=== PATIENT | male | born 1930 | race Caucasian/White ===

== ENCOUNTER 2017-04-06 19:16 | Emergency (ER) | payer MEDICARE, BC ==
[2017-04-06 19:35] VITALS: BP 145/61
--- NOTE | 2017-04-06 19:51 | EDM.PDOC ---
ED HPI GENERAL MEDICAL PROBLEM - General Chief Complaint: Lower Extremity Injury/Pain Stated Complaint: LEGS Time Seen by Provider: 04/06/17 19:24 Source of Information: Reports: Patient, Family History Limitations: Reports: No Limitations - History of Present Illness INITIAL COMMENTS - FREE TEXT/NARRATIVE: Patient here with complaints of right knee pain that started a few days ago and he know has lower extremity swelling of that same leg. 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 He states his pain is specifically to the medial aspect of his knee/tibial plateau area. No calf pain, warmth, or redness. 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 He has no other complaints at this time. No SOB, CP, urinating frequently at night, regular BM's. No abdominal pain, fever, or chills. Onset: Gradual Onset Date: 04/03/17 Location: Reports: Lower Extremity, Right Quality: Reports: Sharp Severity: Moderate Improves with: Reports: Cold Therapy, Rest Worsens with: Reports: Movement Associated Symptoms: Reports: No Other Symptoms posterior right knee Pain Score (Numeric/FACES): 8 - Related Data Allergies Allergy/AdvReac Type Severity Reaction Status Date / Time BUBBA Inhibitors Allergy Other Verified 04/06/17 19:33 adhesive tape Allergy Other Verified 04/06/17 19:33 minocycline Allergy Other Verified 04/06/17 19:33 contrast dye Allergy Hives Uncoded 04/06/17 19:33 Home Meds: Home Meds Cholecalciferol (Vitamin D3) [Vitamin D3] 1,000 units PO DAILY 03/02/16 [History ] Clobetasol Propionate [Temovate] 15 gm TP BID PRN 03/02/16 [History] Cyclobenzaprine [Flexeril] 5 mg PO TID PRN 03/02/16 [History] Hydrochlorothiazide 0.5 tab PO DAILY 03/02/16 [History] Hydrocodone/Acetaminophen [[place] 5-325] 1 - 2 tab PO ASDIRECTED PRN 03/02/16 [ History] Losartan [Cozaar] 50 mg PO DAILY 03/02/16 [History] Multivitamin [Multivitamins] 1 cap PO DAILY 03/02/16 [History] Nitroglycerin [Nitrostat] 0.4 mg SL ASDIRECTED PRN 03/02/16 [History] Omeprazole 20 mg PO BID 03/02/16 [History] atorvaSTATin Calcium [Atorvastatin Calcium] 80 mg PO DAILY 03/02/16 [History] Aspirin [Halfprin] 81 mg PO BRK 04/06/17 [History] Cyanocobalamin (Vitamin B-12) [Vitamin B-12] 1,000 mcg PO DAILY 04/06/17 [ History] Past Medical History Cardiovascular History: Reports: CAD, High Cholesterol, Hypertension, [place], Other (See Below) Other Cardiovascular History: carotid stenosis Gastrointestinal History: Reports: GERD, Other (See Below) Other Gastrointestinal History: inguinal hernia Genitourinary History: Reports: Other (See Below) Other Genitourinary History: 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 right side Dermatological Surgical History: Reports: Skin Biopsy Social & Family History - Tobacco Use Smoking Status *Q: Never Smoker Second Hand Smoke Exposure: No - Alcohol Use Days Per Week of Alcohol Use: 7 Number of Drinks Per Day: 3 Total Drinks Per Week: 21 - Recreational Drug Use Recreational Drug Use: No Review of Systems - Review of Systems Review Of Systems: See Below Constitutional: Reports: No Symptoms Eyes: Reports: No Symptoms Ears: Reports: No Symptoms Nose: Reports: No Symptoms Mouth/Throat: Reports: No Symptoms Respiratory: Reports: No Symptoms Cardiovascular: Reports: No Symptoms GI/Abdominal: Reports: No Symptoms Genitourinary: Reports: No Symptoms Musculoskeletal: Reports: Leg Pain, Joint Pain (right knee) Skin: Reports: No Symptoms Neurological: Reports: No Symptoms Psychiatric: Reports: No Symptoms ED EXAM, GENERAL - Physical Exam Exam: See Below Exam Limited By: No Limitations General Appearance: Alert, WD/WN, Mild Distress Eye Exam: Bilateral Eye: EOMI, PERRL Ears: Normal TMs Throat/Mouth: Normal Inspection, Normal Oropharynx Head: Atraumatic, Normocephalic Neck: Normal Inspection Respiratory/Chest: No Respiratory Distress, Lungs Clear, Normal Breath Sounds, No Accessory Muscle Use, Chest Non-Tender Cardiovascular: Normal Peripheral Pulses, Regular Rate, Rhythm, No Murmur Peripheral Pulses: 2+: Posterior Tibial (L), Posterior Tibial (R), Dorsalis Pedis (L), Dorsalis Pedis (R) GI/Abdominal: Normal Bowel Sounds, Soft, Non-Tender, No Organomegaly, No Distention Back Exam: Normal Inspection Extremities: Normal Range of Motion, Normal Capillary Refill, Pedal Edema (1-2+ pedal edema to right lower leg and right knee with joint effusion), Joint Swelling Neurological: Alert, Oriented, CN II-XII Intact, Normal Cognition, Normal Reflexes, No Motor/Sensory Deficits, Abnormal Gait (due to pain to right knee, slight limp) Psychiatric: Normal Affect, Normal Mood Skin Exam: Warm, Dry, Intact, Normal Color, No Rash, Ecchymosis (left thumb where injured while working, also has edema) Lymphatic: No Adenopathy Course - Vital Signs Last Recorded V/S: Last Vital Signs Temp 36.0 C 04/06/17 19:34 Pulse 67 04/06/17 19:34 Resp 16 04/06/17 19:34 BP 145/61 H 04/06/17 19:34 Pulse Ox 95 04/06/17 19:34 - Re-Assessments/Exams Free Text/Narrative Re-Assessment/Exam: 04/06/17 20:49 labwork and x-ray reviewed. No acute process within the knee. Vascular calcifications noted. D-dimer negative. uric acid also negative. Departure - Departure Time of Disposition: 20:54 Disposition: Home, Self-Care 01 Condition: Good Clinical Impression: Acute knee pain, Right leg swelling - Discharge Information Instructions: Knee Sprain, [id number], Knee Pain Forms: ED Department Discharge Additional Instructions: Your workup in the emergency room was negative for any acute causes for your knee pain. The work up for blood clot and gout were negative. You do not have acute fractures. You should follow up with your primary doctor for any additional knee symptoms. If your knee pain does not improve, you may need to have an MRI to rule out any soft tissue injury in the ligament, tendon, muscle, or cartilage. In the meantime, rest, ice, compress and elevate your right leg. 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 Take ibuprofen, motrin, or aleve. You can also add in tylenol as needed. Please call us with any questions or concerns. - Problem List & Annotations (1) Acute knee pain SNOMED Code(s): 08319046 Code(s): M25.569 - PAIN IN UNSPECIFIED KNEE Status: Acute Priority: Low Current Visit: Yes Qualifiers: Laterality: right Qualified Code(s): M25.561 - Pain in right knee (2) Right leg swelling SNOMED Code(s): 656860660 Code(s): M79.89 - OTHER SPECIFIED SOFT TISSUE DISORDERS Status: Acute Priority: Low Current Visit: Yes - Problem List Review Problem List Initiated/Reviewed/Updated: Yes - Assessment/Plan Assessment:: Right knee pain/muscle strain Plan: Your workup in the emergency room was negative for any acute causes for your knee pain. The work up for blood clot and gout were negative. You do not have acute fractures. You should follow up with your primary doctor for any additional knee symptoms. If your knee pain does not improve, you may need to have an MRI to rule out any soft tissue injury in the ligament, tendon, muscle, or cartilage. In the meantime, rest, ice, compress and elevate your right leg. 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 Take ibuprofen, motrin, or aleve. You can also add in tylenol as needed. Please call us with any questions or concerns.
[2017-04-06 20:33] LABS: CHLORIDE,CL 102 mmol/L (98-107); SODIUM,NA 136 mmol/L (136-145)
== END 2017-04-06 21:00 | disposition home or self-care (01) ==
LOC: VM.ED 19:16
DX: M25.561 Pain in right knee (principal); R22.41 Localized swelling, mass and lump, right lower limb; E78.00 Pure hypercholesterolemia, unspecified; I10 Essential (primary) hypertension; I25.2 Old myocardial infarction; K21.9 Gastro-esophageal reflux disease without esophagitis; I25.810 Atherosclerosis of coronary artery bypass graft(s) without angina pectoris; Z95.1 Presence of aortocoronary bypass graft; Z88.1 Allergy status to other antibiotic agents; Z91.041 Radiographic dye allergy status; Z79.899 Other long term (current) drug therapy; Z79.82 Long term (current) use of aspirin
CPT/HCPCS: 36415; 73562-RT; 80053; 84550; 85025; 85379; 85610; 99283; 99283-GF

== ENCOUNTER 2017-11-29 06:14 | Observation (INO) | payer MEDICARE, BC ==
[2017-11-29] MEDS ORDERED: Sodium Chloride 0.9% 10 ML Syringe FLUSH PRN (06:30)
--- NOTE | 2017-11-29 06:32 | EDM.PDOC ---
<Ernie Bardales - Last Filed: 11/29/17 07:10> ED HPI GENERAL MEDICAL PROBLEM - General Chief Complaint: Gastrointestinal Problem Stated Complaint: NAUSEA Time Seen by Provider: 11/29/17 06:20 Source of Information: Reports: Patient, EMS Notes Reviewed, RN, RN Notes Reviewed History Limitations: Reports: No Limitations - History of Present Illness INITIAL COMMENTS - FREE TEXT/NARRATIVE: Patient is brought to the ED at [facility] via EMS because he was feeling nauseated. Patient was seen in the clinic at [facility] a couple of days ago and placed on Augmentin for cellulitis. Patient states he started taking the medication yesterday and began to feel nauseated. EMS crew stay upon their arrival, patient stated he felt some chest discomfort. 12 Lead was completed. Patient was given Zofran enroute. On arrival to the ED, patient states he was feeling pretty good. No complains. Denied any chest pain or SOB. Nausea has resolved. No focal neurological deficits. Onset: Today Onset Date: 11/29/17 - Related Data Allergies Allergy/AdvReac Type Severity Reaction Status Date / Time BUBBA Inhibitors Allergy Other Verified 11/29/17 06:19 adhesive tape Allergy Other Verified 11/29/17 06:19 minocycline Allergy Other Verified 11/29/17 06:19 contrast dye Allergy Hives Uncoded 11/29/17 06:19 Home Meds: Home Meds Cholecalciferol (Vitamin D3) [Vitamin D3] 1,000 units PO DAILY 03/02/16 [History ] Clobetasol Propionate [Temovate] 15 gm TP BID PRN 03/02/16 [History] Hydrochlorothiazide 12.5 mg PO DAILY 03/02/16 [History] Hydrocodone/Acetaminophen [[place] 5-325] 1 - 2 tab PO Q6H PRN 03/02/16 [History] Losartan [Cozaar] 50 mg PO DAILY 03/02/16 [History] Multivitamin [Multivitamins] 1 tab PO DAILY 03/02/16 [History] Nitroglycerin [Nitrostat] 0.4 mg SL ASDIRECTED PRN 03/02/16 [History] Omeprazole 20 mg PO BID 03/02/16 [History] atorvaSTATin Calcium [Atorvastatin Calcium] 80 mg PO BEDTIME 03/02/16 [History] Aspirin [Halfprin] 81 mg PO BRK 04/06/17 [History] Amoxicillin/Potassium Clav [Augmentin 500-125 Tablet] 1 each PO BID 11/29/17 [ History] LORazepam [Ativan] 0.5 - 1 mg PO DAILY PRN 11/29/17 [History] Vitamin B Complex [B Complex] 1,000 mg PO DAILY 11/29/17 [History] Past Medical History Cardiovascular History: Reports: CAD, High Cholesterol, Hypertension, [place], Other (See Below) Other Cardiovascular History: carotid stenosis Gastrointestinal History: Reports: GERD, Other (See Below) Other Gastrointestinal History: inguinal hernia Genitourinary History: Reports: Other (See Below) Other Genitourinary History: 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 right side Dermatological Surgical History: Reports: Skin Biopsy Social & Family History - Tobacco Use Smoking Status *Q: Never Smoker Second Hand Smoke Exposure: No - Alcohol Use Days Per Week of Alcohol Use: 7 Number of Drinks Per Day: 3 Total Drinks Per Week: 21 - Recreational Drug Use Recreational Drug Use: No ED ROS GENERAL - Review of Systems Review Of Systems: See Below Constitutional: Denies: Fever, Chills, Weakness Respiratory: Denies: Shortness of Breath, Cough Cardiovascular: Denies: Chest Pain, Palpitations GI/Abdominal: Reports: Nausea. Denies: Abdominal Pain, Vomiting Skin: Reports: No Symptoms Neurological: Reports: No Symptoms. Denies: Dizziness, Headache ED EXAM, GI/ABD - Physical Exam Exam: See Below Exam Limited By: No Limitations General Appearance: Alert, No Apparent Distress Respiratory/Chest: No Respiratory Distress, Lungs Clear, Normal Breath Sounds Cardiovascular: Normal Peripheral Pulses, Regular Rate, Rhythm GI/Abdominal Exam: Soft, Non-Tender, Abnormal Bowel Sounds (Hypoactive) Neurological: Alert, Oriented Skin Exam: Warm, Dry, Intact Course - Vital Signs Last Recorded V/S: Last Vital Signs Temp 36.3 C 11/29/17 08:11 Pulse 58 L 11/29/17 08:11 Resp 18 04/25/18 08:11 BP 159/72 H 11/29/17 08:11 Pulse Ox 100 11/29/17 08:11 - Orders/Labs/Meds Orders: Active Orders 24 hr Category Date Time Status Sodium Chloride 0.9% [Saline Flush] Med 11/29/17 06:30 Active 10 ml FLUSH ASDIRECTED PRN Peripheral IV Insertion Adult [OM.PC] Routine Oth 11/29/17 06:30 Ordered Medication Orders Hydrocodone Bitart/Acetaminophen (Take Home: Acetam/Hydrocodon 325-5 Mg, 5 Pack ) packet PO Q6H PRN PRN Reason: Pain Amoxicillin/Clavulanate Potassium (Augmentin 500 Mg\\125 Mg) tab PO BID SANAZ Aspirin (Halfprin) 81 mg PO BRK SANAZ Cholecalciferol (Vitamin D3) 1,000 units PO DAILY SANAZ Enoxaparin Sodium (Lovenox) 40 mg SUBCUT DAILY SANAZ Hydrochlorothiazide (Hydrochlorothiazide) 12.5 mg PO DAILY SANAZ Lorazepam (Ativan) 0.5 - 1 mg PO DAILY PRN PRN Reason: Anxiety Losartan Potassium (Cozaar) 50 mg PO DAILY SANAZ Non-Formulary Medication (Atorvastatin Calcium [Atorvastatin Calcium]) 80 mg PO BEDTIME SANAZ Non-Formulary Medication (Multivitamin [Multivitamins]) 1 tab PO DAILY SANAZ Non-Formulary Medication (Omeprazole [Omeprazole]) 20 mg PO BID SANAZ Non-Formulary Medication (Vitamin B Complex [B Complex]) 1,000 mg PO DAILY SANAZ Sodium Chloride (Saline Flush) 10 ml FLUSH ASDIRECTED PRN PRN Reason: Keep Vein Open Last Admin: 11/29/17 07:21 Dose: 10 ml Labs: Laboratory Tests 11/29/17 11/29/17 Range/Units 06:40 06:40 WBC 8.3 (4.0-10.0) x10^3/uL RBC 3.84 L (4.5-6.0) x10^6/uL Hgb 12.6 L (14.0-18.0) g/dL Hct 36.7 L (40.0-52.0) % MCV 95.6 H (78.0-93.0) fL MCH 32.8 H (26.0-32.0) pg MCHC 34.3 (32.0-36.0) g/dL RDW Coeff of Latonya 12.4 (10.0-15.0) % Plt Count 187 (130-400) x10^3/uL Neut % (Auto) 74.9 (50.0-80.0) % Lymph % (Auto) 10.8 L (25.0-50.0) % [place] % (Auto) 12.0 H (2.0-11.0) % Eos % (Auto) 2.2 (0.0-4.0) % Baso % (Auto) 0.1 L (0.2-1.2) % Sodium 136 (136-145) mmol/L Potassium 4.0 (3.5-5.1) mmol/L Chloride 101 (98-107) mmol/L Carbon Dioxide 28 (21-32) mmol/L Anion Gap 11.0 (10-20) mmol/L BUN 17 (7-18) mg/dL Creatinine 1.1 (0.70-1.30) mg/dL Est Cr Clr Drug Dosing TNP Estimated GFR (MDRD) > 60 Glucose 116 H (74-106) mg/dL Calcium 9.0 (8.5-10.1) mg/dL Creatine Kinase 53 (39-308) U/L Troponin I < 0.017 (<=0.056) ng/mL Meds: Medications Generic Name Dose Route Start Last Admin Trade Name Freq PRN Reason Stop Dose Admin Hydrocodone Bitart/Acetaminophen packet 11/29/17 09:21 Take Home: Acetam/Hydrocodon 325-5 Mg, 5 Pack PO Q6H PRN Pain Amoxicillin/Clavulanate Potassium tab 11/29/17 20:00 Augmentin 500 Mg\\125 Mg PO BID SANAZ Aspirin 81 mg 11/30/17 08:00 Halfprin PO BRK [facility] Cholecalciferol 1,000 units 11/30/17 08:00 Vitamin D3 PO DAILY [facility] Enoxaparin Sodium 40 mg 11/29/17 09:30 Lovenox SUBCUT DAILY [facility] Hydrochlorothiazide 12.5 mg 11/30/17 08:00 Hydrochlorothiazide PO DAILY [facility] Lorazepam 0.5 - 1 mg 11/29/17 09:21 Ativan PO DAILY PRN Anxiety Losartan Potassium 50 mg 11/29/17 09:30 Cozaar PO DAILY SANAZ Non-Formulary Medication 80 mg 11/29/17 20:00 Atorvastatin Calcium [Atorvastatin Calcium] PO BEDTIME SANAZ Non-Formulary Medication 1 tab 11/29/17 09:30 Multivitamin [Multivitamins] PO DAILY SANAZ Non-Formulary Medication 20 mg 11/29/17 09:30 Omeprazole [Omeprazole] PO BID SANAZ Non-Formulary Medication 1,000 mg 11/29/17 09:30 Vitamin B Complex [B Complex] PO DAILY SANAZ Sodium Chloride 10 ml 11/29/17 06:30 11/29/17 07:21 Saline Flush FLUSH 10 ml ASDIRECTED PRN Administration Keep Vein Open Discontinued Medications Generic Name Dose Route Start Last Admin Trade Name Freq PRN Reason Stop Dose Admin Metoclopramide HCl 5 mg 11/29/17 07:14 11/29/17 07:21 Reglan IVPUSH 11/29/17 07:15 5 mg ONETIME ONE Administration Departure - Departure Disposition: Home, Self-Care 01 Clinical Impression: Bradycardia - Discharge Information - Problem List Review Problem List Initiated/Reviewed/Updated: Yes <Toy Lopez - Last Filed: 11/29/17 09:28> ED EXAM, GI/ABD - Physical Exam Ears: Normal External Exam, Normal Canal, Hearing Grossly Normal, Normal TMs Nose: Normal Inspection, Normal Mucosa, No Blood Throat/Mouth: Normal Inspection, Normal Lips, Normal Teeth, Normal Gums, Normal Oropharynx, Normal Voice, No Airway Compromise Head: Atraumatic, Normocephalic Neck: Normal Inspection, Supple, Non-Tender, Full Range of Motion (Male) Exam: Deferred Rectal (Males) Exam: Deferred Back Exam: Normal Inspection, Full Range of Motion, NT Extremities: Normal Inspection, Normal Range of Motion, Non-Tender, Normal Capillary Refill, No Pedal Edema Lymphatic: No Adenopathy EKG INTERPRETATION EKG Date: 11/29/17 Rhythm: NSR Departure - Departure Time of Disposition: 09:27
[2017-11-29 07:07] LABS: CHLORIDE,CL 101 mmol/L (98-107); SODIUM,NA 136 mmol/L (136-145)
[2017-11-29] MEDS ORDERED: Metoclopramide 10 MG/2 ML SDV IVPUSH ONE (07:14)
[2017-11-29] MEDS ORDERED: LORazepam 0.5 MG Tab PO PRN (09:21)
[2017-11-29] MEDS ORDERED: Acetaminophen/HYDROcodone 325-5 MG Tab PO PRN (09:21)
[2017-11-29] MEDS: Enoxaparin 40 MG/0.4 ML Syringe SUBCUT SCH (10:28)
[2017-11-29] MEDS: Multivitamin, Stress Formula with Zinc Tab PO SCH ×2 (10:29→10:55)
[2017-11-29] MEDS: Vitamin B Complex Tab.ER PO SCH ×2 (10:29→10:55)
[2017-11-29] MEDS: Hydrochlorothiazide 25 MG Tab PO SCH (10:29)
[2017-11-29] MEDS: Omeprazole 20 MG Cap.CR PO SCH ×2 (10:29→20:55)
[2017-11-29] MEDS: Losartan 50 MG Tab PO SCH (10:29)
[2017-11-29] MEDS ORDERED: Multivitamin, Stress Formula with Zinc Tab PO SCH (20:00)
[2017-11-29] MEDS ORDERED: Cholecalciferol (Vitamin D3) 1,000 Unit Tab PO SCH (20:00)
[2017-11-29] MEDS ORDERED: atorvaSTATin 40 MG Tab PO SCH (20:00)
[2017-11-29] MEDS ORDERED: Vitamin B Complex Tab.ER PO SCH (20:00)
[2017-11-29] MEDS: Amoxicillin/Clavulanate K 500-125 MG Tab PO SCH (20:54)
[2017-11-30] MEDS: Hydrochlorothiazide 25 MG Tab PO SCH (07:41)
[2017-11-30] MEDS: Amoxicillin/Clavulanate K 500-125 MG Tab PO SCH (07:41)
[2017-11-30] MEDS: Omeprazole 20 MG Cap.CR PO SCH (07:41)
[2017-11-30] MEDS: Enoxaparin 40 MG/0.4 ML Syringe SUBCUT SCH (07:41)
[2017-11-30] MEDS: Losartan 50 MG Tab PO SCH (07:41)
[2017-11-30] MEDS ORDERED: Aspirin 81 MG Tab.EC PO SCH (08:00)
[2017-11-30 10:42] VITALS: BP 105/58
== END 2017-11-30 13:00 | disposition home or self-care (01) ==
LOC: VM.ED 06:14 → VM.MS 07:45
PROVIDERS: ADMIT Physician Assistant; ATTEND Physician Assistant
DX: R00.1 Bradycardia, unspecified (principal); I25.10 Atherosclerotic heart disease of native coronary artery without angina pectoris; I10 Essential (primary) hypertension; E78.00 Pure hypercholesterolemia, unspecified; K21.9 Gastro-esophageal reflux disease without esophagitis; Z88.1 Allergy status to other antibiotic agents; Z91.041 Radiographic dye allergy status; Z91.09 Other allergy status, other than to drugs and biological substances; Z79.82 Long term (current) use of aspirin; Z79.2 Long term (current) use of antibiotics; Z79.899 Other long term (current) drug therapy
CPT/HCPCS: 36415; 80048; 82550; 84484; 85025; 85027; 93005; 96372; 96374; 99283-GF; 99284; A9270-GY; G0378; J1650; J2765; J7050

== ENCOUNTER 2019-04-07 18:59 | Emergency (ER) | payer MEDICARE, BC ==
[2019-04-07 19:30] VITALS: BP 166/73
--- NOTE | 2019-04-07 21:43 | EDM.PDOC ---
ED HPI GENERAL MEDICAL PROBLEM - General Chief Complaint: Lower Extremity Injury/Pain Stated Complaint: FELL Time Seen by Provider: 04/07/19 19:10 Source of Information: Reports: Patient History Limitations: Reports: No Limitations - History of Present Illness INITIAL COMMENTS - FREE TEXT/NARRATIVE: Pt. presents to ER with complaints of R thigh pain. Pt. states that he fell on Monday and is concerned that his thigh is uncomfortable and swollen. States that the pain is isolated to the mid R femur area. No hip or knee pain. Denies striking head. No numbness/tingling in the extremity. He is able to bear weight and walk. Pain is worse with palpation of the area. Denies any chest pain or shortness of breath. He denies any lightheadedness, weakness or other prodrome prior to the fall. Onset Date: 04/07/19 Location: Reports: Lower Extremity, Right Quality: Reports: Throbbing Severity: Moderate Right Thigh Pain Score (Numeric/FACES): 6 - Related Data Allergies Allergy/AdvReac Type Severity Reaction Status Date / Time BUBBA Inhibitors Allergy Other Verified 04/07/19 19:14 adhesive tape Allergy Other Verified 04/07/19 19:14 minocycline Allergy Other Verified 04/07/19 19:14 contrast dye Allergy Hives Uncoded 04/07/19 19:14 Home Meds: Home Meds Cholecalciferol (Vitamin D3) [Vitamin D3] 1,000 units PO DAILY 03/02/16 [History ] Losartan [Cozaar] 50 mg PO DAILY 03/02/16 [History] Multivitamin [Multivitamins] 1 tab PO DAILY 03/02/16 [History] Omeprazole 20 mg PO BID 03/02/16 [History] atorvaSTATin Calcium [Atorvastatin Calcium] 80 mg PO BEDTIME 03/02/16 [History] hydroCHLOROthiazide [Hydrochlorothiazide] 12.5 mg PO DAILY 03/02/16 [History] Aspirin [Halfprin] 81 mg PO BRK 04/06/17 [History] Vitamin B Complex [B Complex] 1,000 mg PO DAILY 11/29/17 [History] Past Medical History Cardiovascular History: Reports: CAD, High Cholesterol, Hypertension, [place], Other (See Below) Other Cardiovascular History: carotid stenosis Gastrointestinal History: Reports: GERD, Other (See Below) Other Gastrointestinal History: inguinal hernia Genitourinary History: Reports: Other (See Below) Other Genitourinary History: nodular prostate without urinary obstruction Other Musculoskeletal History: right arm humerous in june Neurological History: Reports: Other (See Below) Other Neuro History: 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 right side Dermatological Surgical History: Reports: Skin Biopsy Social & Family History - Family History Family Medical History: Noncontributory - Tobacco Use Smoking Status *Q: Never Smoker - Caffeine Use Caffeine Use: Reports: Coffee - Alcohol Use Days Per Week of Alcohol Use: 3 Number of Drinks Per Day: 3 Total Drinks Per Week: 9 - Recreational Drug Use Recreational Drug Use: No Review of Systems - Review of Systems Review Of Systems: See Below Constitutional: Reports: No Symptoms Eyes: Reports: No Symptoms Ears: Reports: No Symptoms Nose: Reports: No Symptoms Mouth/Throat: Reports: No Symptoms Respiratory: Reports: No Symptoms Cardiovascular: Reports: No Symptoms GI/Abdominal: Reports: No Symptoms Genitourinary: Reports: No Symptoms Musculoskeletal: Reports: Leg Pain Skin: Reports: No Symptoms Neurological: Reports: No Symptoms Psychiatric: Reports: No Symptoms ED EXAM, GENERAL - Physical Exam Exam: See Below Exam Limited By: No Limitations General Appearance: Alert, WD/WN, No Apparent Distress Extremities: Normal Range of Motion, Leg Pain, Other (mid lateral thigh pain. ROM is normal. Some increased pain with weight bearing.) Neurological: Alert, Oriented, CN II-XII Intact, Normal Cognition, Normal Gait, Normal Reflexes, No Motor/Sensory Deficits Course - Vital Signs Last Recorded V/S: Last Vital Signs Temp 36.2 C 04/07/19 19:00 Pulse 60 04/07/19 19:00 Resp 18 04/07/19 19:00 BP 166/73 H 04/07/19 19:00 Pulse Ox 100 04/07/19 19:00 - Orders/Labs/Meds Orders: Active Orders 24 hr Category Date Time Status Femur Min 2V Rt [CR] Stat Exams 04/07/19 19:19 Taken Departure - Departure Time of Disposition: 20:00 Disposition: Home, Self-Care 01 Condition: Good Clinical Impression: Thigh contusion - Discharge Information Instructions: Quadriceps Contusion, RICE for Routine Care of Injuries Referrals: Anthony Robles MD [Primary Care Provider] - Forms: ED Department Discharge Additional Instructions: Rest. Tylenol as needed for pain. Ice painful area for 10-15 min every hour. Follow-up in clinic in 7-10 days if continuing to have discomfort. - My Orders Last 24 Hours: My Active Orders 04/07/19 19:19 Femur Min 2V Rt [CR] Stat - Assessment/Plan Last 24 Hours: My Active Orders 04/07/19 19:19 Femur Min 2V Rt [CR] Stat Plan: Rest. Tylenol as needed for pain. Ice painful area for 10-15 min every hour. Follow-up in clinic in 7-10 days if continuing to have discomfort.
--- NOTE | 2019-04-09 10:17 | CR ---
[id number] RAD/RAD Femur Right 2V EXAM: 3 VIEWS RIGHT FEMUR. INDICATION: FALL 2 DAYS AGO COMPARISON: None. DISCUSSION: No fracture, dislocation or other acute osseous abnormality. 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 Mild degenerative changes of the right hip. Extensive vascular calcifications. IMPRESSION: 1. No acute osseous abnormalities. Chronic changes as above. John Hernandes DO 04/09/19 1016 Thank you for allowing us to participate in the care of your patient.
== END 2019-04-07 20:45 | disposition home or self-care (01) ==
LOC: VM.ED 18:59
DX: S70.11XA Contusion of right thigh, initial encounter (principal); I10 Essential (primary) hypertension; I25.10 Atherosclerotic heart disease of native coronary artery without angina pectoris; I25.2 Old myocardial infarction; K21.9 Gastro-esophageal reflux disease without esophagitis; Z79.899 Other long term (current) drug therapy; Z79.82 Long term (current) use of aspirin; Z95.1 Presence of aortocoronary bypass graft; Z91.09 Other allergy status, other than to drugs and biological substances; Z91.041 Radiographic dye allergy status; W19.XXXA Unspecified fall, initial encounter
CPT/HCPCS: 99283-25; 99284-GF

== ENCOUNTER 2019-08-22 16:13 | Observation (INO) | payer MEDICARE, BC ==
[2019-08-22] MEDS ORDERED: Acetaminophen 325 MG Tab PO PRN (16:35)
--- NOTE | 2019-08-22 16:41 | PCM.HP.2 ---
H&P History of Present Illness - General Date of Service: 08/22/19 Admit Problem/Dx: Admission Diagnosis/Problem Admission Diagnosis/Problem Atrial fibrillation - History of Present Illness Initial Comments - Free Text/Narative: RAJ?DS?-VASc Score for Atrial Fibrillation Stroke Risk from [employer] on 2019 All calculations should be rechecked by clinician prior to use RESULT SUMMARY: 4 points Stroke risk was 4.8% per year in >90,000 patients (the [place] Atrial Fibrillation Cohort Study) and 6.7% risk of stroke/TIA/systemic embolism. One recommendation suggests a 0 score is low risk and may not require anticoagulation; a 1 score is low-moderate risk and should consider antiplatelet or anticoagulation, and score 2 or greater is moderate-high risk and should otherwise be an anticoagulation candidate. INPUTS: Age > 2 = ?75 Sex > 0 = Male CHF history > 0 = No Hypertension history > 1 = Yes Stroke/TIA/thromboembolism history > 0 = No Vascular disease history (prior [place], peripheral artery disease, or aortic plaque ) > 1 = Yes Diabetes history > 0 = No w w w w w Lab Results l Component l Value l Date w w CREATSERUM w 1.00 w 06/05/2019 Assessment / Plan Dizziness - EKG; Future History of coronary artery bypass graft - EKG; Future S/P carotid endarterectomy - EKG; Future Bradycardia - EKG; Future Plan:Patient has symptomatic new onset atrial fibrillation with bradycardia/ slow ventricular response. I don't see any P waves on his EKG. He has a clearly irregular rhythm and he has an narrowcomplex QRS. Rate 53 by EKG. Nurse recorded itslower at 44 at triage. He is not on any chronotropic medicine currently that we could stop. Would recommend admission for telemetry. If he's going closerto 40 he may need to see EP sooner rather than later to discuss pacemaker for tachybradycardia syndrome. Given his chads two vascular of 4recommend starting anticoagulation, Xarelto would be easiest. GFR just above 50 so he can take full dose.He does not need concurrent aspirin for his coronary disease as he has no recent intervention. Dr. Amena Ramires internal medicine reviewed and will see him in the morning. No follow-ups on file. HPI / History / ROS Dizzinessx couple days. Lightheaded but no syncope or vertigo. Maybe slight SOB but no CP or palp. Nonsmoker IMPRESSION: 1. Normal study. 2. The stress EKG portion is negative for ischemia. Braga treadmill score is 7 which is low risk. 3. Normal stress and resting perfusion images. No evidence of ischemia or infarction. 4. Normal left ventricular cavity size, ejection fraction, and wall motion. 03/03/201608/2015- Rt carotid endarterectomy ,no post op problems. 2006-Summary 1. Coronary circulation: a. Left main: There was a tubular 95 % stenosis in the distal third of the vessel segment. b. Proximal LAD: There was a 100 % stenosis. c. Proximal circumflex: There was a 100 % stenosis. d. Ostial RCA: There was a diffuse 85 % stenosis. e. Proximal RCA: There was a 100 % stenosis. f. Graft to the mid LAD: The graft was a sequential DAWSON graft from mid LAD to distal LAD . Graft angiography showed no evidence of disease. Radial graft from DAWSON to OM and PDA. No disease. g. Graft to the RPDA: The graft was a sequential radial graft. 2. Cardiac structures: a. Global left ventricular function was hypercontractile. EF estimated by contrast ventriculography was 65 %. 03/21/2000-Urgent coronary artery bypass graft x 5, left internal mammary artery sequentially to LAD x 2, left internal mammary artery to radial artery sequentially to diagonal, terminal circumflex, PDA. Medications w MedicationsPriortoVisit w Outpatient Medications Prior to Visit Medication Sig Dispense Refill HYDROcodone-acetaminophen (NORCO) 5-325 mg tablet TAKE 1 - 2 TABLETS BY MOUTH EVERY 6 HOURS NEEDED FOR MODERATE PAIN 30 tablet 0 hydroCHLOROthiazide 25 mg tablet TAKE 1/2 TABLET (12.5MG) BY MOUTH DAILY 45 tablet 3 omeprazole (PRILOSEC) 20 mg capsule TAKE 1 CAPSULE BY MOUTH TWICE A DAY 180 capsule 3 diclofenac (VOLTAREN) 1% gel Apply 2 g topically 3 times a day as needed (arthritis hand) 1 Tube 3 atorvaSTATin calcium (LIPITOR) 80 mg tablet TAKE 1 TABLET BY MOUTH EVERY NIGHT AT BEDTIME 90 tablet 3 losartan 50 mg tablet TAKE 1 TABLET BY MOUTH EVERY DAY 90 tablet 3 nitroglycerin (NITROSTAT) 0.4 mg sublingual tablet Dissolve 1 tablet (0.4 mg) under the tongue Every 5 minutes as needed for chest pain 25 tablet 0 LORazepam (ATIVAN) 0.5 mg tablet Take 1-2 tablets (0.5-1 mg total) by mouth 1 time a day as needed for anxiety or agitation (30-60min prior to procedure) 10 tablet 0 aspirin (ECOTRIN LOW STRENGTH) 81 MG enteric coated tablet Take 1 tablet (81 mg total) by mouth 1 time per day 30 tablet 0 clobetasol propionate (TEMOVATE) 0.05 % ointment Apply to affected area as needed for itching. Apply twice daily to affected skin for up to 2 weeks 60 g 5 Multiple Vitamins-Minerals (MULTIVITAL) tablet Take 1 tablet by mouth 1 time per day. B Complex Vitamins (VITAMIN B COMPLEX PO) Take 1,000 mg by mouth 1 time per day. vitamin D3, cholecalciferol, 1000 units tablet Take 1,000 Units by mouth 1 time per day. sulfamethoxazole-trimethoprim double strength (BACTRIM DS, SEPTRA DS) 800-160 mg double strength tablet Take 1 tablet by mouth 2 times a day 6 tablet 0 furosemide (LASIX) 20 mg tablet Take 1 tablet (20 mg) by mouth 1 time a day as needed for other (Specify) (40mg x 7d then 20mg qd indefinitely) 30 tablet 1 No facility-administered medications prior to visit. 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 Inguinal hernia w w Actinic keratosis w w Hyperlipidemia w w Impaired fasting glucose w w Carotid stenosis w w S/P carotid endarterectomy w w 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 70-79% stenosis on the right, 50-69% stenosis on the left. Cataract COR Athrscl-Uns Vessel 10/14/2002 Cath 1999 (90% LAD, 80% Diagonal, 95% ramus, 70% Cx, 90% RCA CABG 1999. DAWSON- LAD, Sequential raadial off DAWSON to Diag, OM and PDA. 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 zoster 09/12 right chest; pain improving 11/10 S/P CABG (coronary artery bypass graft) 09/02/2015 Skin cancer of face Squamous cell carcinoma w PastSurgicalHistory w Past Surgical History: Procedure Laterality Date CAROTID ENDARTERECTOMY Right 09/10/2015 Procedure: RIGHT CAROTID ENDARTERECTOMY W/ EEG MONITORING;; Surgeon: Nael Potts MD CORONARY ARTERY BYPASS GRAFT EYE SURGERY Bilateral Cataracts HERNIA REPAIR Right inguinal hernia 2003 and 2009 w FamilyHistory w Family History Problem Relation Age of Onset Not otherwise listed - Cancer Father Stroke Mother Other Brother Not otherwise listed - Cancer Half brother w SocialHistory w Social History Socioeconomic History Marital status: Spouse name: Not on file Number of children: 4 Years of education: Not on file Highest education level: 8th grade Occupational History Occupation: [employer] retired Social Needs Financial resource strain: Not hard at all Food insecurity: Worry: Never true Inability: Never true Transportation needs: Medical: No Non-medical: No Tobacco Use Smoking status: Never Smoker Smokeless tobacco: Never Used Substance and Sexual Activity Alcohol use: Yes Alcohol/week: 4.0 standard drinks Types: 4 Cans of beer per week Frequency: Monthly or less Drinks per session: 1 or 2 Binge frequency: Never Comment: approximately 4-5 beers weekly Drug use: No Sexual activity: Not Currently Lifestyle Physical activity: Days per week: 0 days Minutes per session: Not on file Stress: Not at all Relationships Social connections: Talks on phone: More than three times a week Gets together: More than three times a week Attends catholic service: Never Active member of club or organization: Yes Attends meetings of clubs or organizations: 1 to 4 times per year Relationship status: Intimate partner violence: Fear of current or ex partner: No Emotionally abused: No Physically abused: No Forced sexual activity: No Social History Narrative Patient lives: [facility] Occupation: Retired [employer] Sikh: Jehovah'S Witness Marital status: Children: 2 girls 2 boys. A daughter lives in [place] and sons live in [place]. 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 ROS Review of Systems Constitutional: Negative forfever. Respiratory: Positive forshortness of breath. Negative forcough. Cardiovascular: Negative forchest pain,palpitationsand leg swelling. Gastrointestinal: Negative forvomiting. Neurological: Positive fordizzinessand light-headedness. Negative forsyncope and speech difficulty. Physical / Results BP 130/52 Pulse 44 Temp 97.3 F (36.3 C) (Tympanic) Wt 69.9 kg (154 lb) SpO2 100% BMI 25.24 kg/m2|| Physical Exam Constitutional: He appearswell-developedand well-nourished.No distress. Cardiovascular: Esteban, irreg Pulmonary/Chest:Effort normaland breath sounds normal. Abdominal:Soft. Musculoskeletal: He exhibits noedema. Neurological: Nocranial nerve deficit.Coordinationnormal. Skin: Skin iswarmand dry. He isnot diaphoretic. Psychiatric: He has anormal mood and affect. - Related Data Allergies/Adverse Reactions: Allergies Allergy/AdvReac Type Severity Reaction Status Date / Time ALFIE Inhibitors Allergy Other Verified 04/07/19 19:14 adhesive tape Allergy Other Verified 04/07/19 19:14 minocycline Allergy Other Verified 04/07/19 19:14 contrast dye Allergy Hives Uncoded 04/07/19 19:14 Home Medications: Home Meds Cholecalciferol (Vitamin D3) [Vitamin D3] 1,000 units PO DAILY 03/02/16 [History ] Losartan [Cozaar] 50 mg PO DAILY 03/02/16 [History] Multivitamin [Multivitamins] 1 tab PO DAILY 03/02/16 [History] Omeprazole 20 mg PO BID 03/02/16 [History] atorvaSTATin Calcium [Atorvastatin Calcium] 80 mg PO BEDTIME 03/02/16 [History] hydroCHLOROthiazide [Hydrochlorothiazide] 12.5 mg PO DAILY 03/02/16 [History] Aspirin [Halfprin] 81 mg PO BRK 04/06/17 [History] Vitamin B Complex [B Complex] 1,000 mg PO DAILY 11/29/17 [History] Past Medical History Cardiovascular History: Reports: CAD, High Cholesterol, Hypertension, [place], Other (See Below) Other Cardiovascular History: carotid stenosis Gastrointestinal History: Reports: GERD, Other (See Below) Other Gastrointestinal History: inguinal hernia Genitourinary History: Reports: Other (See Below) Other Genitourinary History: nodular prostate without urinary obstruction Other Musculoskeletal History: right arm humerous in june Neurological History: Reports: Other (See Below) Other Neuro History: 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 right side Dermatological Surgical History: Reports: Skin Biopsy Social & Family History - Family History Family Medical History: Noncontributory - Caffeine Use Caffeine Use: Reports: Coffee H&P Review of Systems - Review of Systems: Review Of Systems: See Below Exam - Exam Exam: See Below Problem List Initiated/Reviewed/Updated: Yes Orders Last 24hrs: Active Orders 24 hr Category Date Time Status Admission Status [Patient Status] [ADT] Routine ADT 08/22/19 16:16 Active Patient Status [ADT] Routine ADT 08/22/19 16:35 Ordered EKG Documentation Completion [RC] STAT Care 08/23/19 07:30 Ordered Oxygen Therapy [RC] PRN Care 08/22/19 16:35 Ordered Telemetry Monitoring [Cardiac Monitoring] [RC] . Care 08/22/19 16:37 Ordered DIRECTED Up With Assistance [RC] ASDIRECTED Care 08/22/19 16:35 Ordered VTE/DVT Education [RC] PER UNIT ROUTINE Care 08/22/19 16:35 Ordered Vital Signs [RC] Q4H Care 08/22/19 16:35 Ordered Heart Healthy Diet [DIET] Diet 08/22/19 Dinner Ordered CBC WITH AUTO DIFF [HEME] Routine Lab 08/22/19 16:35 Ordered COMPREHENSIVE METABOLIC PN,CMP [CHEM] Routine Lab 08/22/19 16:35 Ordered TROPONIN I [CHEM] Routine Lab 08/22/19 16:35 Ordered TSH ULTRASENSITIVE [CHEM] Routine Lab 08/22/19 16:39 Ordered Acetaminophen [Tylenol] Med 08/22/19 16:35 Ordered 650 mg PO Q4H PRN Cholecalciferol (Vitamin D3) [Vitamin D3] Med 08/23/19 08:00 Ordered 1,000 units PO DAILY Losartan [Cozaar] Med 08/23/19 08:00 Ordered 50 mg PO DAILY Multivitamin [Multivitamins] Med 08/23/19 08:00 Ordered 1 tab PO DAILY Omeprazole [Omeprazole] Med 08/22/19 20:00 Ordered 20 mg PO BID Rivaroxaban [Xarelto] Med 08/22/19 20:00 Ordered 20 mg PO BEDTIME Vitamin B Complex [B Complex] Med 08/23/19 08:00 Ordered 1,000 mg PO DAILY atorvaSTATin Calcium [Atorvastatin Calcium] Med 08/22/19 20:00 Ordered 80 mg PO BEDTIME hydroCHLOROthiazide Med 08/23/19 08:00 Ordered 12.5 mg PO DAILY Resuscitation Status Routine Resus Stat 08/22/19 16:35 Ordered Medication Orders Acetaminophen (Tylenol) 650 mg PO Q4H PRN PRN Reason: Pain (Mild 1-3)/fever Cholecalciferol (Vitamin D3) mcg PO DAILY SANAZ Hydrochlorothiazide (Hydrochlorothiazide) 12.5 mg PO DAILY SANAZ Losartan Potassium (Cozaar) 50 mg PO DAILY SANAZ Non-Formulary Medication (Atorvastatin Calcium [Atorvastatin Calcium]) 80 mg PO BEDTIME SANAZ Non-Formulary Medication (Multivitamin [Multivitamins]) 1 tab PO DAILY SANAZ Non-Formulary Medication (Omeprazole [Omeprazole]) 20 mg PO BID SANAZ Non-Formulary Medication (Vitamin B Complex [B Complex]) 1,000 mg PO DAILY SANAZ Rivaroxaban (Xarelto) 20 mg PO BEDTIME SANAZ
[2019-08-22] MEDS ORDERED: Sodium Chloride 0.9% 10 ML Syringe FLUSH PRN (17:20)
[2019-08-22 17:52] LABS: ANION GAP 12.4 mmol/L (10-20)
[2019-08-22] MEDS: Omeprazole 20 MG Cap.CR PO SCH (19:39)
[2019-08-22] MEDS ORDERED: atorvaSTATin 40 MG Tab PO SCH (20:00)
[2019-08-22] MEDS ORDERED: Rivaroxaban 10 MG Tab PO SCH (20:00)
[2019-08-23] MEDS: Omeprazole 20 MG Cap.CR PO SCH (06:13)
[2019-08-23 06:54] LABS: ANION GAP 10.6 mmol/L (10-20); CHLORIDE,CL 104 mmol/L (98-107); SODIUM,NA 139 mmol/L (136-145)
[2019-08-23] MEDS ORDERED: Multivitamins with Iron/Calcium/Folic Acid/Minerals Tab PO SCH (08:00)
[2019-08-23] MEDS ORDERED: Vitamin B Complex Tab.ER PO SCH (08:00)
[2019-08-23] MEDS ORDERED: Hydrochlorothiazide 25 MG Tab PO SCH (08:00)
[2019-08-23] MEDS ORDERED: Cholecalciferol (Vitamin D3) 25 MCG Tab PO SCH (08:00)
[2019-08-23] MEDS ORDERED: Losartan 50 MG Tab PO SCH (08:00)
[2019-08-23] MEDS ORDERED: Magnesium Oxide 400 MG Tab PO ONE (09:15)
[2019-08-23] MEDS ORDERED: Aspirin 81 MG Tab.Chew PO ONE (09:15)
[2019-08-23 10:07] VITALS: BP 146/61; PULSE 51
--- NOTE | 2019-08-23 18:44 | DISCH ---
PRIMARY DISCHARGE DIAGNOSES: 1. Symptomatic bradycardia. 2. New onset atrial fibrillation with bradycardia. 3. [id number] myocardial infarction with known history of coronary artery disease, CABG back in 1999. 4. Peripheral vascular disease with previous carotid endarterectomy. REASON FOR ADMISSION: On the date of admission, this 89-year-old came into the clinic. He had been short of breath over a couple weeks but feeling dizzy over the last day or so. He was found to have heart rate of 44 by the nurse. EKG showed new atrial fibrillation, narrow complex, irregular rhythm with no P waves at 53. He was admitted for observation later in the evening. I was called by nursing and reported that his heart rates had actually been down as low as 29 and mostly in the 30s. The patient was having no increase in symptoms at this point. He did drop down to 25 overnight and had 3 second pauses. This morning, he was able to get up. He walked to the bathroom, and his heart rate actually went up to the 70s, but mostly he has been in the 40s to 50s and he is throwing some PVCs. TSH was normal. Electrolytes were normal. Magnesium level is pending. This morning, he began having some mild chest discomfort. He also felt like he was retaining fluid, but had no leg swelling. He did get his regular blood pressure medications and his hydrochlorothiazide. He had good urine output. His lungs were clear. He was on no beta-blockers. His last cardiac intervention was an angiogram in 2005, which did show his patent grafts. He had 5-vessel bypass and his EF on that was 65%. Otherwise, he had no abdominal pain. He was able to have a bowel movement. He answered all questions appropriately. PHYSICAL EXAMINATION: Vital Signs: His temperature 97, pulse 43, blood pressure 136/52, respiratory rate 17, and O2 of 97% on room air. General: He was in no acute distress. Heart: Irregularly irregular without murmurs. Lungs: Sounds clear to auscultation bilaterally. Abdomen: Positive bowel sounds. Soft, nontender. Extremities: Warm and dry. No edema. Mental Status: He is alert, he is orientated x3. DISCHARGE PLANS AND INSTRUCTIONS: [facility] is being [facility] ambulance. Likely, he will need a permanent pacemaker. He did get a dose of Xarelto last night. He also had a magnesium level that was mildly low at 1.7, so was given 400 of magnesium oxide orally prior to transfer along with 4 baby aspirin due to the chest pain. He also has a history of MRSA, but no acute infections, so he was kept in precaution. MKA: 08/23/2019 08:41:07 MODL: 08/23/2019 18:34:54 /[id number]
== END 2019-08-23 12:10 | disposition short-term general hospital (02) ==
LOC: VM.MS 16:21 → INTOOBSV 16:21
PROVIDERS: ADMIT Family Medicine; ATTEND Family Medicine
DX: I48.91 Unspecified atrial fibrillation (principal); I10 Essential (primary) hypertension; E78.5 Hyperlipidemia, unspecified; E78.00 Pure hypercholesterolemia, unspecified; I25.10 Atherosclerotic heart disease of native coronary artery without angina pectoris; I25.2 Old myocardial infarction; K21.9 Gastro-esophageal reflux disease without esophagitis; Z95.1 Presence of aortocoronary bypass graft; Z98.890 Other specified postprocedural states; Z88.8 Allergy status to other drugs, medicaments and biological substances; Z91.048 Other nonmedicinal substance allergy status; Z91.041 Radiographic dye allergy status
CPT/HCPCS: 36415; 80048; 80053; 83735; 84443; 84484; 85025; 93005; A9270-GY; G0378; G0379

== ENCOUNTER 2020-04-26 15:13 | Emergency (ER) | payer MEDICARE, BC ==
[2020-04-26] MEDS ORDERED: methylPREDNISolone Sodium Succinate 125 MG/2 ML SDV IVPUSH STA (15:17)
[2020-04-26] MEDS ORDERED: diphenhydrAMINE 50 MG/ML SDV IVPUSH ONE (15:17)
[2020-04-26] MEDS ORDERED: Sodium Chloride 0.9% 1,000 ML IV ONE (15:19)
[2020-04-26] MEDS ORDERED: Sodium Chloride 0.9% 10 ML Syringe FLUSH PRN (15:19)
--- NOTE | 2020-04-26 15:26 | EDM.PDOC ---
ED HPI GENERAL MEDICAL PROBLEM - General Stated Complaint: bee sting Time Seen by Provider: 04/26/20 15:13 Source of Information: Reports: Patient History Limitations: Reports: No Limitations - History of Present Illness INITIAL COMMENTS - FREE TEXT/NARRATIVE: Patient comes into the emergency department with complaint of a bee sting to the upper lip. Patient states that approximately 20 minutes before arrival he was stung in the upper lip by bee. He states that he felt the bee sting and was able to extract the stinger. He states that he noticed swelling immediately on his upper lip. He denies any shortness of breath, tongue swelling, tingling in the back of the throat, swelling in the throat, difficulty swallowing, shortness of breath, or chest pain. Patient states that he does note that it feels like it is increasing in swelling on the face. He was stung 5 or 6 years ago on the arm with a local reaction he states that he is never been told that he has an anaphylaxis to bee stings. He denies any other concerns or complaints and states he is been relatively healthy. Patient denies any chest pain, shortness of breath, dizziness, lightheadedness, blurred vision, GI upset, or peripheral edema. Patient states is been relatively healthy and has no active COVID-19 symptoms or no recent positive findings. Onset: Sudden Severity: Moderate Improves with: Reports: None Worsens with: Reports: None Associated Symptoms: Reports: No Other Symptoms - Related Data Allergies Allergy/AdvReac Type Severity Reaction Status Date / Time BUBBA Inhibitors Allergy Other Verified 04/26/20 15:47 adhesive tape Allergy Other Verified 04/26/20 15:47 minocycline Allergy Other Verified 04/26/20 15:47 contrast dye Allergy Hives Uncoded 04/07/19 19:14 Home Meds: Home Meds Cholecalciferol (Vitamin D3) [Vitamin D3] 1,000 units PO DAILY 03/02/16 [History] Losartan [Cozaar] 50 mg PO DAILY 03/02/16 [History] Multivitamin [Multivitamins] 1 tab PO DAILY 03/02/16 [History] Omeprazole 20 mg PO BID 03/02/16 [History] atorvaSTATin Calcium [Atorvastatin Calcium] 80 mg PO BEDTIME 03/02/16 [History] hydroCHLOROthiazide [Hydrochlorothiazide] 12.5 mg PO DAILY 03/02/16 [History] Aspirin [Halfprin] 81 mg PO DAILY 04/06/17 [History] Vitamin B Complex [B Complex] 1,000 mg PO DAILY 11/29/17 [History] Clobetasol [Clobetasol Propionate 0.05%] 1 applic TOP BID PRN 08/22/19 [History] Diclofenac Sodium [Voltaren 1% Gel] 2 g TOP TID PRN 08/22/19 [History] Hydrocodone/Acetaminophen [[place] 5-325 Tablet] 1 - 2 tab PO Q6HR PRN 08/22/19 [History] LORazepam [Ativan] 0.5 - 1 mg PO DAILY PRN 08/22/19 [History] Nitroglycerin [Nitrostat] 0.4 mg SL ASDIRECTED PRN 08/22/19 [History] Past Medical History HEENT History: Reports: Cataract, Hard of Hearing Cardiovascular History: Reports: Afib, Bypass, CAD, High Cholesterol, Hypertension, [place], Other (See Below) Other Cardiovascular History: carotid stenosis Gastrointestinal History: Reports: GERD, Other (See Below) Other Gastrointestinal History: inguinal hernia Genitourinary History: Reports: Other (See Below) Other Genitourinary History: nodular prostate without urinary obstruction Other Musculoskeletal History: right arm humerous in june Neurological History: Reports: Other (See Below) Other Neuro History: 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 right side. 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 Constitutional: Reports: No Symptoms HEENT: Reports: No Symptoms Respiratory: Reports: No Symptoms Cardiovascular: Reports: No Symptoms Endocrine: Reports: No Symptoms GI/Abdominal: Reports: No Symptoms : Reports: No Symptoms Musculoskeletal: Reports: No Symptoms Skin: Reports: No Symptoms Neurological: Reports: No Symptoms Psychiatric: Reports: No Symptoms Hematologic/Lymphatic: Reports: No Symptoms Immunologic: Reports: No Symptoms ED EXAM, GENERAL - Physical Exam Exam: See Below Exam Limited By: No Limitations General Appearance: Alert, WD/WN, No Apparent Distress Eye Exam: Bilateral Eye: EOMI, PERRL Throat/Mouth: Inflammation (moderate swelling upper lip and cheek ) Head: Atraumatic, Normocephalic Neck: Normal Inspection, Supple, Non-Tender, Full Range of Motion Respiratory/Chest: No Respiratory Distress, Lungs Clear, Normal Breath Sounds, No Accessory Muscle Use, Chest Non-Tender Cardiovascular: Normal Peripheral Pulses, Regular Rate, Rhythm, No Edema, No Rub Extremities: Normal Inspection, Normal Range of Motion, Non-Tender, No Pedal Edema, Normal Capillary Refill Neurological: Alert, Oriented, Normal Gait Psychiatric: Normal Affect, Normal Mood Skin Exam: Warm, Dry, Intact, Normal Color Course - Vital Signs Last Recorded V/S: Last Vital Signs Temp 36.9 C 04/26/20 15:15 Pulse 73 04/26/20 15:15 Resp 16 04/26/20 15:15 BP 164/78 H 04/26/20 15:15 Pulse Ox 98 04/26/20 15:15 - Orders/Labs/Meds Orders: Active Orders 24 hr Category Date Time Status Sodium Chloride 0.9% [Saline Flush] Med 04/26/20 15:19 Active 10 ml FLUSH ASDIRECTED PRN Peripheral IV Insertion Adult [OM.PC] Stat Oth 04/26/20 15:19 Ordered Medication Orders Sodium Chloride (Saline Flush) 10 ml FLUSH ASDIRECTED PRN PRN Reason: Keep Vein Open Meds: Medications Generic Name Dose Route Start Last Admin Trade Name Freq PRN Reason Stop Dose Admin Sodium Chloride 10 ml 04/26/20 15:19 Saline Flush FLUSH ASDIRECTED PRN Keep Vein Open Discontinued Medications Generic Name Dose Route Start Last Admin Trade Name Freq PRN Reason Stop Dose Admin Diphenhydramine HCl 25 mg 04/26/20 15:17 04/26/20 15:30 Benadryl IVPUSH 04/26/20 15:18 25 mg ONETIME ONE Administration Sodium Chloride 1,000 mls @ 1,000 mls/hr 04/26/20 15:19 04/26/20 15:30 Normal Saline IV 04/26/20 16:18 1,000 mls/hr ONETIME ONE Administration Methylprednisolone Sodium Succinate 125 mg 04/26/20 15:17 04/26/20 15:32 Solu-Medrol IVPUSH 04/26/20 15:18 125 mg NOW STA Administration - Re-Assessments/Exams Free Text/Narrative Re-Assessment/Exam: 04/26/20 16:47 mild swelling noted on upper right lip. Cheek swelling resolved. Patient feels like he is ready for discharge Departure - Departure Time of Disposition: 15:45 Disposition: Home, Self-Care 01 Condition: Good Clinical Impression: Bee sting reaction Qualifiers: Encounter type: initial encounter Injury intent: accidental or unintentional Qualified Code(s): T63.441A - Toxic effect of venom of bees, accidental (unintentional), initial encounter Allergic reaction Qualifiers: Encounter type: initial encounter Qualified Code(s): T78.40XA - Allergy, unspecified, initial encounter - Discharge Information *PRESCRIPTION DRUG MONITORING PROGRAM REVIEWED*: Not Applicable *COPY OF PRESCRIPTION DRUG MONITORING REPORT IN PATIENT MARY: Not Applicable Instructions: Bee, Wasp, or Hornet Sting, Adult, Diphenhydramine capsules or tablets Additional Instructions: 1. rest 2. increase your water intake 3. Continue all at home medications 4. Activity and diet as tolerated 5. Can take over the counter Tylenol for any pain or discomfort 6. Follow up with PCP if symptoms continue, return, or progress 7. Call with any questions or concerns 8. Take Benadryl every 4 hours for the next 24-48 hours if any swelling is present. Follow label instructions for dosing. Sepsis Event Note (ED) - Focused Exam Vital Signs: Vital Signs Temp Pulse Resp BP Pulse Ox 04/26/20 15:15 36.9 C 73 16 164/78 H 98 - My Orders Last 24 Hours: My Active Orders 04/26/20 15:19 Sodium Chloride 0.9% [Saline Flush] 10 ml FLUSH ASDIRECTED PRN Peripheral IV Insertion Adult [OM.PC] Stat - Assessment/Plan Last 24 Hours: My Active Orders 04/26/20 15:19 Sodium Chloride 0.9% [Saline Flush] 10 ml FLUSH ASDIRECTED PRN Peripheral IV Insertion Adult [OM.PC] Stat Assessment:: 1. bee sting 2. allergic reaction Plan: 1. IV initiated in the ER 2. IV fluid provided in the ER 500ml given initially 3. Benadryl IV given in ER 4. Solumedrol IV given in ER 5. Patient and nursing staff was updated regarding the plan of care 7. Education provided the patient regarding activity, diet, rest, [id number] ter medication modalities, and follow-up care was provided 8. Patient and family are agreeable to the above plan of care 9. All questions and concerns were addressed with the patient and family prior to discharge
[2020-04-26 15:51] VITALS: BP 164/78; PULSE 73
== END 2020-04-26 16:55 | disposition home or self-care (01) ==
LOC: VM.ED 15:13
DX: T63.441A Toxic effect of venom of bees, accidental (unintentional), initial encounter (principal); I48.91 Unspecified atrial fibrillation; I10 Essential (primary) hypertension; I25.10 Atherosclerotic heart disease of native coronary artery without angina pectoris; I25.2 Old myocardial infarction; K21.9 Gastro-esophageal reflux disease without esophagitis; Z91.048 Other nonmedicinal substance allergy status; Z88.8 Allergy status to other drugs, medicaments and biological substances; Z88.1 Allergy status to other antibiotic agents; Z91.041 Radiographic dye allergy status; Z79.82 Long term (current) use of aspirin; Z79.899 Other long term (current) drug therapy; Z95.1 Presence of aortocoronary bypass graft
CPT/HCPCS: 96361; 96374; 96375; 99283; 99284-25; J1200; J2930; J7030

== ENCOUNTER 2021-03-07 19:54 | Emergency (ER) | payer MEDICARE, BC ==
[2021-03-07 20:24] VITALS: BP 151/63; PULSE 68
[2021-03-07] MEDS ORDERED: Diphtheria,Pertussis(Acell),Tetanus Vaccine 0.5 ML Syringe IM ONE (20:29)
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
== END 2021-03-07 21:14 | disposition home or self-care (01) ==
LOC: VM.ED 19:54
DX: S60.212A Contusion of left wrist, initial encounter (principal); Z91.041 Radiographic dye allergy status; Z91.048 Other nonmedicinal substance allergy status; Z88.1 Allergy status to other antibiotic agents; Z23 Encounter for immunization; W23.0XXA Caught, crushed, jammed, or pinched between moving objects, initial encounter
CPT/HCPCS: 73130-LT; 90471; 90715; 99283; 99283-25